=== PATIENT | female | born 1990 | race Caucasian/White ===

== ENCOUNTER → 2018-04-22 | Outpatient (CLI) | payer OTHER ==
--- NOTE | 2018-04-22 16:06 | XR ---
Cervical spine HISTORY: Pain 5 views of cervical spine There is no significant foraminal encroachment. Cervical vertebral bodies show preserved height and b one mineralization. There is reversal the normal cervical lordosis possibly due to muscle spasm. Mini mal anterolisthesis grade 1 C2-3. Disc spaces relatively maintained. Prevertebral soft tissues are no rmal. IMPRESSION: Loss of lordosis, consider muscle spasm, cervical MRI may be of benefit.
== END | disposition home or self-care (01) ==
LOC: RADXRMAIN 15:15
PROVIDERS: ATTEND Family Medicine
DX: M54.2 Cervicalgia (principal)
CPT/HCPCS: 72050

== ENCOUNTER 2025-02-28 09:50 | Inpatient (IN) | payer OTHER ==
--- NOTE | 2025-02-28 10:37 | ED ---
General Adult HPI - General Chief complaint: Arrhythmia/Palpitations Stated complaint: chest tightness,head ache Time Seen by Provider: 02/28/25 10:18 Source: patient Mode of arrival: ambulatory Limitations: no limitations - History of Present Illness Initial comments: Dictation was produced using [employer] dictation software. please excuse any grammatical, word or spelling errors. Chief Complaint: 35-year-old female chest heaviness rash History of Present Illness: Patient 35-year-old female seen at the urgent care for hives. She has history of liver disease. States she went to the urgent care yesterday and was told to come to the ER because she had associated chest symptoms. She was given allergy cocktail with improvement of her symptoms. She woke up this morning still had symptoms decided to come to the ER today. Patient denies any cardiac history. States that she feels like her heart is racing as well. The ROS documented in this emergency department record has been reviewed and confirmed by me. Those systems with pertinent positive or negative responses have been documented in the HPI. All other systems are other negative and/or noncontributory. - Related Data Allergies Allergy/AdvReac Type Severity Reaction Status Date / Time Penicillins Allergy Anaphylaxis Verified 02/28/25 10:13 Review of Systems ROS Statement: Those systems with pertinent positive or pertinent negative responses have been documented in the HPI. ROS Other: All systems not noted in ROS Statement are negative. Past Medical History History of Any Multi-Drug Resistant Organisms: None Reported Past Surgical History: Section, Orthopedic Surgery, Tubal Ligation Past Psychological History: Depression Smoking Status: Current every day smoker Past Alcohol Use History: Occasional Past Drug Use History: Marijuana General Exam - General Exam Comments Initial Comments: PHYSICAL EXAM: General Impression: Alert and oriented x3, not in acute distress HEENT: Normocephalic atraumatic, extra-ocular movements intact, pupils equal and reactive to light bilaterally, mucous membranes moist. Cardiovascular: Heart regular rate and rhythm Chest: Able to complete full sentences, no retractions, no tachypnea Abdomen: abdomen soft, non-tender, non-distended, no organomegaly Musculoskeletal: Pulses present and equal in all extremities, no peripheral edema Motor: no focal deficits noted Neurological: CN II-XII grossly intact, no focal motor or sensory deficits noted Skin: Intact with no visualized rashes Psych: Normal affect and mood Limitations: no limitations Course Vital Signs 02/28/25 02/28/25 10:07 12:44 Temperature 97.5 F L Pulse Rate 99 86 Respiratory 20 17 Rate Blood Pressure 129/87 106/73 O2 Sat by Pulse 99 99 Oximetry EKG Findings - EKG Comments: EKG Findings:: My EKG interpretation: Ventricular rate 91, sinus rhythm, WA 146, cures 94, QTc 439. No WA prolongation, no QTC prolongation, no ST or T-wave c hanges noted. Overall, this EKG is unremarkable Medical Decision Making - Medical Decision Making Was pt. sent in by a medical professional or institution (, PA, POLYMER SCIENTIST, urgent care, hospital, or care home...) When possible be specific @ -No Did you speak to anyone other than the patient for history (EMS, parent, family, police, friend...)? What history was obtained from this source @ -No Did you review nursing and triage notes (agree or disagree)? Why? @ -I reviewed and agree with nursing and triage notes Were old charts reviewed (outside hosp., previous admission, EMS record, old EKG, old radiological studies, urgent care reports/EKG's, care home records)? Report findings @ -No old charts were reviewed Differential Diagnosis (chest pain, altered mental status, abdominal pain women, abdominal pain men, vaginal bleeding, musculoskeletal, weakness, fever, dyspnea, syncope, headache, dizziness, GI bleed, back pain, seizure, CVA, palpatations, mental health)? @ -Differential Chest Pain: Stable Angina, Unstable Angina, STEMI, NSTEMI Aortic Dissection, Pneumothorax, Musculoskeletal, Esophageal Spasm GERD, Cholecystitis, Pancreatitis, Zoster, this is not meant to be an all-inclusive list. EKG interpreted by me (3pts min.). @ -See above X-rays interpreted by me (1pt min.). @ -Chest x-ray shows no acute processes CT interpreted by me (1pt min.). @ -None done U/S interpreted by me (1pt. min.). @ -None done What testing was considered but not performed or refused? (CT, X-rays, U/S, labs)? Why? @ -None What meds were considered but not given or refused? Why? @ -None Was smoking cessation discussed for >3mins.? @ -No Were there social determinants of health that impacted care today? How? (Homelessness, low income, unemployed, alcoholism, drug addiction, transportation, low edu. Level, literacy, decrease access to med. care, [place] [facility], rehab)? @ -No Was there de-escalation of care discussed even if they declined (Discuss DNR or withdrawal of care, Hospice)? DNR status @ -No What co-morbidities impacted this encounter? (DM, HTN, Smoking, COPD, CAD, Cancer, CVA, ARF, Chemo, Hep., AIDS, mental health diagnosis, sleep apnea, morbid obesity)? @ -None Was patient admitted / discharged? Hospital course, mention meds given and route, prescriptions, significant lab abnormalities, going to OR and other perti nent info. @ -35-year-old female presents with chest pain, palpitations headache and rash. Vital signs upon arrival are within acceptable limits. EKG is unremarkable. Laboratory evaluation obtained labs are within acceptable limits troponins negative. Patient has slight hypomagnesemia given magnesium replacement. Patient given aspirin. She does have symptoms concerning for ACS with substern al chest pressure and shortness of breath. Will be admitted to observation consultation to cardiology. Case discussed with hospitalist for admission Did you discuss the management of the patient with other professionals (professionals i.e. , PA, POLYMER SCIENTIST, lab, RT, psych nurse, social media sr strategy manager, lawyer real estate, teacher, marketing and communications officer, foster care case manager)? Give summary @ -No Was critical care preformed (if so, how long)? @ -No Undiagnosed new problem with uncertain prognosis? @ -No Drug Therapy requiring intensive monitoring for toxicity (Heparin, Nitro, Insulin, Cardizem)? @ -No Were any procedures done? @ -No Diagnosis/symptom? Acute, or Chronic, or Acute on Chronic? Uncomplicated (without systemic symptoms) or Complicated (systemic symptoms)? @ -Chest pain Side effects of treatment? @ -No Exacerbation, Progression, or Severe Exacerbation? @ -No Poses a threat to life or bodily function? How? (Chest pain, [place], [place], pneumonia, PE, COPD, DKA, ARF, appy, cholecystitis, CVA, Diverticulitis, Homicidal, Suicidal, threat to staff... and all critical care pts) @ -yes - Lab Data Result diagrams: 02/28/25 10:44 05/18/25 10:44 Lab Results 02/28/25 02/28/25 02/28/25 Range/Units 10:44 10:44 10:44 WBC 12.87 H (4.50-10.00) 10*3/uL RBC 4.42 (4.10-5.20) 10*6/uL Hgb 12.8 (12.0-15.0) g/dL Hct 38.0 (37.2-46.3) % MCV 86.0 (80.0-97.0) fL MCH 29.0 (27.0-32.0) pg MCHC 33.7 (32.0-37.0) g/dL Plt Count 209 (140-440) 10*3/uL MPV 10.4 (9.5-12.2) fL Immature Gran % (Auto) 0.2 % Neutrophils % 74.0 % Lymphocytes % 19.9 % Monocytes % 5.7 % Eosinophils % 0.0 % Basophils % 0.2 % Immature Gran # 0.03 (0.00-0.04) 10*3/uL Neutrophils # 9.51 H (1.80-7.70) 10*3/uL Lymphocytes # 2.56 (0.90-5.00) 10*3/uL Monocytes # 0.74 (0.20-1.00) 10*3/uL Eosinophils # 0.00 L (0.04-0.35) 10*3/uL Basophils # 0.03 (0.00-0.10) 10*3/uL PT 11.8 (10.0-12.5) sec INR 1.1 (<1.2) APTT 21.9 L (22.0-30.0) sec Sodium 139 (137-145) mmol/L Potassium 3.4 L (3.5-5.1) mmol/L Chloride 103 (98-107) mmol/L Carbon Dioxide 18 L (22-30) mmol/L Anion Gap 18 mmol/L BUN 8 (7-17) mg/dL Creatinine 0.54 (0.52-1.04) mg/dL Est GFR (CKD-EPI)AfAm >90 (>60 ml/min/1.73 sqM) Est GFR (CKD-EPI)NonAf >90 (>60 ml/min/1.73 sqM) Glucose 91 (74-99) mg/dL Calcium 10.9 H (8.4-10.2) mg/dL Magnesium 1.5 L (1.6-2.3) mg/dL Total Bilirubin 0.9 (0.2-1.3) mg/dL AST 72 H (14-36) U/L ALT 47 H (4-34) U/L Alkaline Phosphatase 180 H (38-126) U/L Troponin I (0.000-0.034) ng/mL Total Protein 9.0 H (6.3-8.2) g/dL Albumin 5.1 H (3.5-5.0) g/dL 02/28/25 Range/Units 10:44 WBC (4.50-10.00) 10*3/uL RBC (4.10-5.20) 10*6/uL Hgb (12.0-15.0) g/dL Hct (37.2-46.3) % MCV (80.0-97.0) fL MCH (27.0-32.0) pg MCHC (32.0-37.0) g/dL Plt Count (140-440) 10*3/uL MPV (9.5-12.2) fL Immature Gran % (Auto) % Neutrophils % % Lymphocytes % % Monocytes % % Eosinophils % % Basophils % % Immature Gran # (0.00-0.04) 10*3/uL Neutrophils # (1.80-7.70) 10*3/uL Lymphocytes # (0.90-5.00) 10*3/uL Monocytes # (0.20-1.00) 10*3/uL Eosinophils # (0.04-0.35) 10*3/uL Basophils # (0.00-0.10) 10*3/uL PT (10.0-12.5) sec INR (<1.2) APTT (22.0-30.0) sec Sodium (137-145) mmol/L Potassium (3.5-5.1) mmol/L Chloride (98-107) mmol/L Carbon Dioxide (22-30) mmol/L Anion Gap mmol/L BUN (7-17) mg/dL Creatinine (0.52-1.04) mg/dL Est GFR (CKD-EPI)AfAm (>60 ml/min/1.73 sqM) Est GFR (CKD-EPI)NonAf (>60 ml/min/1.73 sqM) Glucose (74-99) mg/dL Calcium (8.4-10.2) mg/dL Magnesium (1.6-2.3) mg/dL Total Bilirubin (0.2-1.3) mg/dL AST (14-36) U/L ALT (4-34) U/L Alkaline Phosphatase (38-126) U/L Troponin I <0.012 (0.000-0.034) ng/mL Total Protein (6.3-8.2) g/dL Albumin (3.5-5.0) g/dL Disposition Clinical Impression: Chest pain Disposition: ADMITTED IP TO THIS HOSP Condition: Fair Is patient prescribed a controlled substance at d/c from ED?: No Referrals: None,Stated [Primary Care Provider] - 1-2 days Decision Time: 13:22
[2025-02-28 11:05] LABS: Basophils # (A) 0.03 10*3/uL (0.00-0.10); Basophils % (A) 0.2 %; HGB 12.8 g/dL (12.0-15.0); Lymphocytes # (A) 2.56 10*3/uL (0.90-5.00); Lymphocytes % (A) 19.9 %; MCHC 33.7 g/dL (32.0-37.0); Mean Platelet Volume 10.4 fL (9.5-12.2); Monocytes # (A) 0.74 10*3/uL (0.20-1.00); Monocytes % (A) 5.7 %; Neutrophils # (A) 9.51 10*3/uL (1.80-7.70); Platelet Count 209 10*3/uL (140-440); RBC 4.42 10*6/uL (4.10-5.20); RDW 14.2 % (11.5-14.5); WBC 12.87 10*3/uL (4.50-10.00)
--- NOTE | 2025-02-28 11:12 | XR ---
Chest, 2 view. CLINICAL INDICATION: Female, 35 years old with history of Chest Pain COMPARISON: None TECHNIQUE: PA and lateral views the chest are obtained. FINDINGS: The lungs are clear and there is no consolidative or interstitial opacity. There is no pleural effusion or pneumothorax. The heart, pulmonary vasculature, mediastinum and vanesa appear normal. The osseous structures are intact. IMPRESSION: No significant abnormality seen. No acute cardiopulmonary disease. [facility], , 02/28/2025 11:09 AM
[2025-02-28 11:14] LABS: AST 72 U/L (14-36); African American GFR (CKD) >90 (>60 ml/min/1.73 sqM); Albumin 5.1 g/dL (3.5-5.0); Alkaline Phosphatase 180 U/L (38-126); Anion Gap 18 mmol/L; Blood Urea Nitrogen 8 mg/dL (7-17); Calcium 10.9 mg/dL (8.4-10.2); Carbon Dioxide 18 mmol/L (22-30); Chloride 103 mmol/L (98-107); Glucose 91 mg/dL (74-99); Magnesium 1.5 mg/dL (1.6-2.3); Non-African American GFR(CKD) >90 (>60 ml/min/1.73 sqM); Potassium 3.4 mmol/L (3.5-5.1); Sodium 139 mmol/L (137-145); Total Bilirubin 0.9 mg/dL (0.2-1.3)
[2025-02-28 11:20] LABS: ALT 47 U/L (4-34)
[2025-02-28 11:22] LABS: INR 1.1 (<1.2); Partial Thromboplastin Time 21.9 sec (22.0-30.0); Prothrombin Time 11.8 sec (10.0-12.5)
[2025-02-28] MEDS ORDERED: MORPHINE SULFATE/PF 10MG/10ML VL IVP PRN (11:58)
[2025-02-28] MEDS: SODIUM CHLORIDE 0.9% 1,000 ML IV STA (12:41)
[2025-02-28] MEDS: MORPHINE SULFATE 4 MG/ML SYRINGE IVP ONE (12:41)
[2025-02-28] MEDS: ASPIRIN 81 MG PO STA (14:39)
[2025-02-28] MEDS: KETOROLAC 15 MG/ML 1 ML VIAL IVP STA (14:39)
[2025-02-28] MEDS: MAGNESIUM OXIDE 400 MG TAB PO STA (14:40)
[2025-02-28] MEDS: NITROGLYCERIN SL TABS 0.4 MG TAB SUBLINGUAL PRN (17:17)
[2025-02-28] MEDS: IBUPROFEN 600 MG TAB PO PRN (23:30)
[2025-03-01] MEDS: MORPHINE SULFATE 2 MG/ML SYRINGE IVP STA (01:29)
[2025-03-01] MEDS: NITROGLYCERIN-D5W PMX 50 MG in DEXTROSE/WATER 1 250ML.BAG IV SCH (02:26)
[2025-03-01 06:06] VITALS: TEMP 97.7
[2025-03-01 07:22] VITALS: RESP 16
[2025-03-01 08:17] LABS: Chol/HDL Ratio 3.68 Ratio; LDL Cholesterol,Calculated 122.2 mg/dL (0.0-131.0)
[2025-03-01] MEDS ORDERED: ALPRAZolam 0.25 MG TAB PO PRN (09:19)
[2025-03-01] MEDS ORDERED: NITROGLYCERIN SL TABS 0.4 MG TAB SUBLINGUAL PRN (09:19)
--- NOTE | 2025-03-01 09:29 | P.CRDCN ---
History of Present Illness Consult date: 03/01/25 History of present illness: HPI: The patient is a 35-year-old female with a history of tobacco and marijuana smoking and a family history of heart disease, with her father having had an OH at age 36. She presented to the hospital due to worsening substantial chest pressure that began on . She reported that on 02/27/2025, she had hives and received steroids at an urgent care facility. The following day, she experienced significant chest heaviness. Sublingual nitroglycerin initially resolved her pain, but it returned, unrelieved by Toradol and aspirin. A ni troglycerin drip at 5 micrograms helped reduce her pain. Her pain reoccurred as the nitroglycerin was stopped. Her EKG did not show significant ST depression or changes concerning ischemia, but there was slight concave elevation diffusely, possibly indicating pericarditis. Her troponin levels were not elevated. Due to chest pain symptoms, cardiology was consulted. Pertinent Vitals: BP 121/85, HR 58 BPM Pertinent cardiac Labs: Trop not elevated, mild transaminitis with elevated AST, ALP, ALT, Pertinent cardiac testing: - EK02/2025: Sinus rhythm, mild concave ST elevation diffusely, possible pericarditis, no clear signs of acute ischemia. - Chest X-ray: 02/2025: No significant consolidation, congestion, mildly hyperinflated lungs. REVIEW OF SYSTEMS: 14 point review of system is negative except what is mentioned above in HPI. PHYSICAL EXAMINATION: Neck: Brisk carotid upstroke, no jugular venous distention. Lungs: Clear to auscultation. Heart: Regular rate and rhythm, S1-S2, no murmur or rub. Abdomen: Soft nontender, positive bowel sounds. Extremities: No edema, intact distal pulses. Neuro: Alert, oriented, no focal deficits. Detailed neuro exam was not performed. ASSESSMENT: # Substantial chest pressure, likely unstable angina, possibly stress-induced # Family history of premature CAD, father with OH at age 36 # Tobacco half pack # Marijuana use, 2-3 times daily and form of smoking PLAN: # Plan for cardiac catheterization due to ongoing substantial chest pressure, improving with nitroglycerin drip but recurring when stopped # Obtain echocardiogram # Obtain NTproBNP, HbA1c, TSH levels, obtain ESR and CRP levels # Start aspirin, Lipitor # Follow cardiology recommendations Past Medical History History of Any Multi-Drug Resistant Organisms: None Reported Past Surgical History: Section, Orthopedic Surgery, Tubal Ligation Past Psychological History: Depression Smoking Status: Current every day smoker Past Alcohol Use History: Occasional Past Drug Use History: Marijuana Medications and Allergies Home Medications Medication Instructions Recorded Confirmed Type No Known Home Medications 02/28/25 02/28/25 History Allergies Allergy/AdvReac Type Severity Reaction Status Date / Time Penicillins Allergy Anaphylaxis Verified 02/28/25 14:15 Physical Exam Vitals: Vital Signs Temp Pulse Resp BP Pulse Ox 03/01/25 07:21 85 16 108/85 99 03/01/25 06:00 97.7 F 60 18 104/71 96 03/01/25 04:02 65 113/85 100 03/01/25 03:00 58 L 18 121/85 100 03/01/25 01:00 66 18 113/89 99 03/01/25 00:00 87 115/82 99 02/28/25 23:00 78 18 105/92 98 02/28/25 22:00 116/84 02/28/25 21:39 76 111/84 100 02/28/25 20:26 79 116/77 100 02/28/25 20:14 80 118/81 99 02/28/25 19:42 98.0 F 85 18 116/77 99 02/28/25 17:03 83 18 113/78 98 02/28/25 15:00 81 17 122/84 98 02/28/25 12:44 86 17 106/73 99 02/28/25 10:07 97.5 F L 99 20 129/87 99 Results 02/28/25 10:44 02/28/25 10:44 Cardiac Enzymes 02/28/25 02/28/25 02/28/25 Range/Units 10:44 10:44 14:47 AST 72 H (14-36) U/L Troponin I <0.012 <0.012 (0.000-0.034) ng/mL 02/28/25 02/28/25 Range/Units 18:18 20:56 AST (14-36) U/L Troponin I <0.012 <0.012 (0.000-0.034) ng/mL Coagulation 02/28/25 Range/Units 10:44 PT 11.8 (10.0-12.5) sec APTT 21.9 L (22.0-30.0) sec Lipids 02/28/25 Range/Units 10:44 Triglycerides 88.00 (0.00-149.00) mg/dL Cholesterol 192.00 (0.00-200.00) mg/dL HDL Cholesterol 52.20 (40.00-60.00) mg/dL Cholesterol/HDL Ratio 3.68 Ratio CBC 02/28/25 Range/Units 10:44 WBC 12.87 H (4.50-10.00) 10*3/uL RBC 4.42 (4.10-5.20) 10*6/uL Hgb 12.8 (12.0-15.0) g/dL Hct 38.0 (37.2-46.3) % Plt Count 209 (140-440) 10*3/uL Comprehensive Metabolic Panel 02/28/25 Range/Units 10:44 Sodium 139 (137-145) mmol/L Potassium 3.4 L (3.5-5.1) mmol/L Chloride 103 (98-107) mmol/L Carbon Dioxide 18 L (22-30) mmol/L BUN 8 (7-17) mg/dL Creatinine 0.54 (0.52-1.04) mg/dL Glucose 91 (74-99) mg/dL Calcium 10.9 H (8.4-10.2) mg/dL AST 72 H (14-36) U/L ALT 47 H (4-34) U/L Alkaline Phosphatase 180 H (38-126) U/L Total Protein 9.0 H (6.3-8.2) g/dL Albumin 5.1 H (3.5-5.0) g/dL Current Medications Generic Name Dose Route Start Last Admin Trade Name Freq PRN Reason Stop Dose Admin Alprazolam 0.25 mg 03/01/25 09:19 Alprazolam 0.25 Mg Tab PO Q6HR PRN Mild Anxiety Aspirin 325 mg 03/01/25 09:00 Aspirin 325 Mg Tab PO DAILY JADEN Nitroglycerin/Dextrose 50 mg/ 250 mls @ 1.5 mls/hr 03/01/25 01:15 03/01/25 02:26 IV Solution IV 5 mcg/min .Q24H JADEN 1.5 mls/hr Administration Protocol 5 MCG/MIN Heparin Sodium (Porcine) 10, 1,001 mls @ 999 mls/hr 03/02/25 07:00 000 unit/ Sodium Chloride IRRIGATION 03/02/25 23:00 ONCE PRN INTRA-OP Heparin Sodium (Porcine) 2,500 250.5 mls @ 250 mls/hr 03/02/25 07:00 unit/ Sodium Chloride IRRIGATION 03/02/25 23:00 ONCE PRN INTRA-OP Sodium Chloride 1,000 ml/ IV 1,000 mls @ 49.895 mls/hr 03/01/25 09:30 Solution IV .Q20H3M JADEN 1 ML/KG/HR Ibuprofen 600 mg 02/28/25 23:19 03/01/25 07:25 Ibuprofen 600 Mg Tab PO 600 mg TID PRN Administration Headache Nitroglycerin 0.4 mg 02/28/25 13:19 02/28/25 20:08 Nitroglycerin Sl Tabs 0.4 Mg Tab SUBLINGUAL 0.4 mg Q5M PRN Administration Chest Pain Nitroglycerin 0.4 mg 03/01/25 09:19 Nitroglycerin Sl Tabs 0.4 Mg Tab SUBLINGUAL Q5M PRN Chest Pain 02/28/25 10:44 02/28/25 10:44
[2025-03-01] MEDS: ASPIRIN 325 MG TAB PO STA (09:39)
--- NOTE | 2025-03-01 09:48 | P.HPIM ---
History of Present Illness H&P Date: 03/01/25 History of present illness; patient 35-year-old lady with past medical history significant for liver disease who presented to The ER because of chest pain. Patient stated she woke up this morning with chest heaviness and headache. Chest heaviness was central in location, nonradiating, no aggravating or relieving factor associated with this chest pain. There was no complaint of orthopnea or PND. Patient complains of shortness of breath. There was no episode of diaphoresis during these episodes, states hard to catch breath during this episode of chest pain. Patient also complaining of palpitations during these episodes. Patient recently was seen in the urgent care for hives at which time she was given Benadryl and steroids. Because of this persistent chest heaviness, patient came to the ER Initial lab work done in the ER showed WBC 12.87, hemoglobin 12.8, platelet count 209, sodium 139, potassium 3.4, BUN 8, creatinine 0.54, magnesium 1.5, AST 72, ALT 47, troponin 0.012 EKG done in the ER showed heart rate of 91, no ST segment elevation or depression seen, no T-wave inversions seen. Chest x-ray done in the ER showed no acute cardiopulmonary process Patient admitted to internal medicine service REVIEW OF SYSTEMS: CONSTITUTIONAL: No fever, no malaise, no fatigue. HEENT: No recent visual problems or hearing problems. Denied any sore throat. CARDIOVASCULAR: As mentioned above. PULMONARY: As mentioned above GASTROINTESTINAL: No diarrhea, no nausea, no vomiting, no abdominal pain. NEUROLOGICAL: No weakness, no numbness. HEMATOLOGICAL: Denies any bleeding or petechiae. GENITOURINARY: Denies any burning micturition, frequency, or urgency. MUSCULOSKELETAL/RHEUMATOLOGICAL: Denies any joint pain, swelling, or any muscle pain. ENDOCRINE: Denies any polyuria or polydipsia. The rest of the 14-point review of systems is negative. PHYSICAL EXAMINATION: GENERAL: The patient is alert and oriented x3, not in any acute distress. Well developed, well nourished. HEENT: Pupils are round and equally reacting to light. EOMI. No scleral icterus. No conjunctival pallor. Normocephalic, atraumatic. No pharyngeal erythema. No thyromegaly. CARDIOVASCULAR: S1 and S2 present. No murmurs, rubs, or gallops. PULMONARY: Chest is clear to auscultation, no wheezing or crackles. ABDOMEN: Soft, nontender, nondistended, normoactive bowel sounds. No palpable organomegaly. MUSCULOSKELETAL: No joint swelling or deformity. EXTREMITIES: No cyanosis, clubbing, or pedal edema. NEUROLOGICAL: Gross neurological examination did not reveal any focal deficits. SKIN: No rashes. Assessment and plan Acute coronary syndrome Hypomagnesemia Acute transaminitis Monitor vital signs Monitor CBC Monitor CMP Continue telemetry monitoring trend troponins Started aspirin, Lipitor Ordered lipid panel Order HbA1c level Ordered 2D echo Start heparin pharmacy dose Consult cardiology Labs and medication were reviewed.. Continue same treatment. Continue with symptomatic treatment. Resume home medication. Monitor labs and vitals. DVT and GI prophylaxis. Further recommendations as per clinical course of the patient Dictation was produced using [employer] dictation software. please excuse any grammatical, word or spelling errors. Past Medical History History of Any Multi-Drug Resistant Organisms: None Reported Past Surgical History: Section, Orthopedic Surgery, Tubal Ligation Past Psychological History: Depression Smoking Status: Current every day smoker Past Alcohol Use History: Occasional Past Drug Use History: Marijuana Medications and Allergies Home Medications Medication Instructions Recorded Confirmed Type No Known Home Medications 02/28/25 02/28/25 History Allergies Allergy/AdvReac Type Severity Reaction Status Date / Time Penicillins Allergy Anaphylaxis Verified 02/28/25 14:15 Physical Exam Vitals: Vital Signs Temp Pulse Resp BP Pulse Ox 03/01/25 07:21 85 16 108/85 99 03/01/25 06:00 97.7 F 60 18 104/71 96 03/01/25 04:02 65 113/85 100 03/01/25 03:00 58 L 18 121/85 100 03/01/25 01:00 66 18 113/89 99 03/01/25 00:00 87 115/82 99 02/28/25 23:00 78 18 105/92 98 02/28/25 22:00 116/84 02/28/25 21:39 76 111/84 100 02/28/25 20:26 79 116/77 100 02/28/25 20:14 80 118/81 99 02/28/25 19:42 98.0 F 85 18 116/77 99 02/28/25 17:03 83 18 113/78 98 02/28/25 15:00 81 17 122/84 98 02/28/25 12:44 86 17 106/73 99 02/28/25 10:07 97.5 F L 99 20 129/87 99 Results CBC & Chem 7: 02/28/25 10:44 02/28/25 10:44 Labs: Abnormal Lab Results - Last 24 Hours (Table) 02/28/25 02/28/25 02/28/25 Range/Units 10:44 10:44 10:44 WBC 12.87 H (4.50-10.00) 10*3/uL Neutrophils # 9.51 H (1.80-7.70) 10*3/uL Eosinophils # 0.00 L (0.04-0.35) 10*3/uL APTT 21.9 L (22.0-30.0) sec Potassium 3.4 L (3.5-5.1) mmol/L Carbon Dioxide 18 L (22-30) mmol/L Calcium 10.9 H (8.4-10.2) mg/dL Magnesium 1.5 L (1.6-2.3) mg/dL AST 72 H (14-36) U/L ALT 47 H (4-34) U/L Alkaline Phosphatase 180 H (38-126) U/L Total Protein 9.0 H (6.3-8.2) g/dL Albumin 5.1 H (3.5-5.0) g/dL
[2025-03-01] MEDS: ASPIRIN 325 MG TAB PO SCH (10:07)
[2025-03-01] MEDS: ATORVASTATIN 80 MG TAB PO STA (10:07)
[2025-03-01] MEDS: SODIUM CHLORIDE 0.9% 1,000 ML in EMPTY BAG 1 BAG IV SCH (10:07)
[2025-03-01 10:15] LABS: Magnesium 1.8 mg/dL (1.6-2.3)
[2025-03-01 10:25] LABS: NT-Pro-B-Type Natriuretic Pept 239 pg/mL
[2025-03-01] MEDS: BUTALB/APAP/CAFF 50-325-40MG TAB PO PRN (10:44)
[2025-03-01 11:22] LABS: C Reactive Protein 0.6 mg/dL (<1.0)
[2025-03-01] MEDS: LIDOCAINE 1% INJ 10MG/ML (30 ML VIAL-PF) SQ ONE (11:44)
[2025-03-01] MEDS: MIDAZOLAM 2 MG/2 ML VIAL IVP ONE (11:44)
[2025-03-01] MEDS: IV FLUID CONTINUATION 1,000 ML IV ONE (11:45)
[2025-03-01] MEDS: VERAPAMIL SYRINGE (5 MG/10 ML) INTRAARTER ONE (11:45)
[2025-03-01] MEDS: fentaNYL (PF) 50 MCG/1 ML VIAL IVP ONE (11:45)
[2025-03-01] MEDS: HEPARIN SODIUM 1,000 UN/ML (10ML VL) IVP ONE (11:50)
[2025-03-01] MEDS: IOPAMIDOL-300 100ML BTL IVP ONE (11:57)
[2025-03-01] MEDS ORDERED: RX INFO: IV CONTRAST WAS GIVEN 1 EACH MISC MISCELLANE PRN (12:08)
[2025-03-01] MEDS ORDERED: ISOSORBIDE MONONITRATE ER 15 MG TAB PO SCH (12:15)
[2025-03-01] MEDS ORDERED: LOSARTAN 25 MG TAB PO SCH (12:15)
[2025-03-01] MEDS ORDERED: SODIUM CHLORIDE 0.9% 1,000 ML IV SCH (12:15)
[2025-03-01 15:23] VITALS: BP 109/67; PULSE 67
--- NOTE | 2025-03-01 16:56 | CA ---
Transthoracic Echo Report Name: Maya Colin Age: 35 Gender: F : 1990 Exam Date: 03/01/2025 10:05 Exam Location: [facility] Ht (in): 60 Wt (lb): 110 Ordering Physician: Jesus Maki MD ([email or web address]) Attending/Referring Phys: Anesthesiology Faculty Johana Allen, MADHU Procedure CPT: Indications: angina pectoris Cardiac Hx: Technical Quality: Good Contrast 1: Total Dose (mL): Contrast 2: Total Dose (mL): MEASUREMENTS (Male / Female) Normal Values 2D ECHO LV Diastolic Diameter PLAX 4.4 cm 4.2 - 5.9 / 3.9 - 5.3 cm LV Systolic Diameter PLAX 3.0 cm IVS Diastolic Thickness 0.8 cm 0.6 - 1.0 / 0.6 - 0.9 cm LVPW Diastolic Thickness 0.8 cm 0.6 - 1.0 / 0.6 - 0.9 cm LV Relative Wall Thickness 0.4 RV Internal Dim ED PLAX 2.6 cm LVOT Diameter 1.5 cm LA Systolic Diameter LX 3.2 cm 3.0 - 4.0 / 2.7 - 3.8 cm LV Diastolic Volume MOD 4C 79.4 cm??? LV Systolic Volume MOD 4C 40.9 cm??? LV Ejection Fraction MOD 4C 48.5 % LV Diastolic Length 4C 8.7 cm LV Systolic Length 4C 7.4 cm LA Volume 44.2 cm??? 18 - 58 / 22 - 52 cm??? LA Volume Index 30.3 cm???/m??? 16 - 28 cm???/m??? DOPPLER MV Area PHT 2.9 cm??? Mitral E Point Velocity 70.7 cm/s Mitral A Point Velocity 46.0 cm/s Mitral E to A Ratio 1.5 MV Deceleration Time 261.8 ms TR Peak Velocity 182.8 cm/s TR Peak Gradient 13.4 mmHg FINDINGS Left Ventricle Left ventricular ejection fraction is estimated at 60 %. Normal left ventricular systolic function with no obvious regional wall motion abnormalities. Left ventricular cavity size normal. Left ventricular wall thickness normal. Right Ventricle Normal right ventricular size and function. Right ventricular systolic pressure within normal limits. Right Atrium Normal right atrial size. Left Atrium Mildly increased left atrial volume. Mitral Valve Mitral valve thickened. No mitral stenosis. Trace mitral regurgitation. Aortic Valve Trileaflet aortic valve. No aortic valve stenosis or regurgitation. Tricuspid Valve Structurally normal tricuspid valve. No tricuspid stenosis. Mild tricuspid regurgitation. Pulmonic Valve Structurally normal pulmonic valve. No pulmonic stenosis. No pulmonic regurgitation. Pericardium No pericardial effusion. Aorta Normal size aortic root and proximal ascending aorta. CONCLUSIONS Diagnosis chest discomfort/angina pectoralis Normal LV size and function Prominent posterior pericardial stripe No effusion Previewed by: Dr. Michael Loaiza MD (Electronically Signed) Final Date: 01 Mar 2025 16:55
[2025-03-01] MEDS ORDERED: ATORVASTATIN 20 MG TAB PO SCH (21:00)
[2025-03-02] MEDS ORDERED: HEPARIN SODIUM,PORCINE (1 ML) 2,500 UNIT in SODIUM CHLORIDE 0.9% 250 ML IRRIGATION PRN (07:00)
[2025-03-02] MEDS ORDERED: HEPARIN SODIUM,PORCINE 10,000 UNIT in SODIUM CHLORIDE 0.9% 1,000 ML IRRIGATION PRN (07:00)
[2025-03-02] MEDS ORDERED: ATORVASTATIN 40 MG TAB PO SCH (21:00)
--- NOTE | 2025-03-05 13:33 | P.DS ---
Providers Date of admission: 02/28/25 13:20 Expected date of discharge: 03/01/25 Attending physician: Geoffrey Mandel Consults: 02/28/25 13:19 Consult Physician Urgent Consulting Provider: Peewee Currie Consult Reason/Comments: chest pain Do you want consulting provider notified?: Yes Primary care physician: Stated None Hospital Course: Discharge diagnoses; Acute coronary syndrome Hypomagnesemia Acute transaminitis Hospital course; patient 35-year-old lady with past medical history significant for liver disease who presented to The ER because of chest pain. Patient stated she woke up this morning with chest heaviness and headache. Chest heaviness was central in location, nonradiating, no aggravating or relieving factor associated with this chest pain. There was no complaint of orthopnea or PND. Patient complains of shortness of breath. There was no episode of diaphoresis during these episodes, states hard to catch breath during this episode of chest pain. Pat ient also complaining of palpitations during these episodes. Patient recently was seen in the urgent care for hives at which time she was given Benadryl and steroids. Because of this persistent chest heaviness, patient came to the ER Initial lab work done in the ER showed WBC 12.87, hemoglobin 12.8, platelet count 209, sodium 139, potassium 3.4, BUN 8, creatinine 0.54, magnesium 1.5, AST 72, ALT 47, troponin 0.012 EKG done in the ER showed heart rate of 91, no ST segment elevation or depression seen, no T-wave inversions seen. Chest x-ray done in the ER showed no acute cardiopulmonary process Patient admitted to internal medicine service. Cardiology evaluated, recommended coronary angiography. Cardiac cath done showed normal coronary angiogram, cardiology cleared the patient for discharge PHYSICAL EXAMINATION: GENERAL: The patient is alert and oriented x3, not in any acute distress. Well developed, well nourished. HEENT: Pupils are round and equally reacting to light. EOMI. No scleral icterus. No conjunctival pallor. Normocephalic, atraumatic. No pharyngeal erythema. No thyromegaly. CARDIOVASCULAR: S1 and S2 present. No murmurs, rubs, or gallops. PULMONARY: Chest is clear to auscultation, no wheezing or crackles. ABDOMEN: Soft, nontender, nondistended, normoactive bowel sounds. No palpable organomegaly. MUSCULOSKELETAL: No joint swelling or deformity. EXTREMITIES: No cyanosis, clubbing, or pedal edema. NEUROLOGICAL: Gross neurological examination did not reveal any focal deficits. SKIN: No rashes. Dictation was produced using [employer] dictation software. please excuse any grammatical, word or spelling errors. Patient Condition at Discharge: Fair Plan - Discharge Summary New Discharge Prescriptions: New Losartan [Cozaar] 12.5 mg PO DAILY #30 tab Isosorbide Mononitrate ER [Imdur] 15 mg PO DAILY #30 tab Atorvastatin [Lipitor] 20 mg PO HS #30 tab Discharge Medication List Atorvastatin [Lipitor] 20 mg PO HS #30 tab 03/01/25 [Rx] Isosorbide Mononitrate ER [Imdur] 15 mg PO DAILY #30 tab 03/01/25 [Rx] Losartan [Cozaar] 12.5 mg PO DAILY #30 tab 03/01/25 [Rx] Follow up Appointment(s)/Referral(s): Jesus Maki MD [Medical Doctor] - 03/10/25 9:00 am None,Stated [Primary Care Provider] - 1-2 days Patient Instructions/Handouts: Moderate Sedation (DC), After Radial Heart Catheterization (GEN), Left Heart Catheterization (DC) Activity/Diet/Wound Care/Special Instructions: No flexing/bending/pushing/pulling/lifting greater than 5 pounds x5 days No driving x2 days No submersion of right wrist in pools/hot tubs/bath tubs/dishwater x3 days Encourage fluids x2 days Home medications as ordered- new scripts to be picked up Fall risk/safety precautions Follow up- with Dr. Maki in one week- Discussed with patient regarding establishing with primary care physician Discharge Disposition: HOME SELF-CARE
--- NOTE | 2025-03-11 14:44 | P.CARDCATH ---
Date of Procedure: 03/01/25 Description of Procedure: DIAGNOSTIC CORONARY ANGIOGRAPHY and LEFT HEART CATH REPORT PROCEDURES PERFORMED: Left heart catheterization Selective coronary angiography Moderate conscious sedation 15 mins [Ultrasound assisted] Right radial access INDICATION: [Unstable angina] BRIEF HPI: 35-year-old female presented to hospital because of substernal chest pressure. Her symptoms are getting better with nitroglycerin drip and she would have substernal chest pressure and the nitroglycerin Triptone off. Because of ongoing substernal chest pressure and unstable angina with risk factors of smoking and family Struve premature CAD she was taken to the [facility]. CONSENT: I have explained the procedural steps of above-mentioned procedures in layman's terms to the patient. I discussed the risks (including but not limited to stroke, emergent vascular or cardiac surgery or ), benefits and alternative therapies for the above-mentioned procedure. I discussed the risks of sedation/analgesia and blood product administration (if indicated). The patient has indicated understanding and acceptance of these risks. Conscious Sedation: Patient's ECG, heart rate, blood pressure, pulse oximetry were monitored throughout the duration of procedure under my direct supervision. 1 mg Versed and 50 mcg Fentanyl were used for induction of moderate conscious sedation. Total duration of moderate concious sedation 15 minutes. PROCEDURAL DETAILS: Patient was prepped and draped in sterile fashion. 1% lidocaine was infiltrated over the right radial artery. Right radial access was obtained via modified seldinger technique. [Ultrasound was used for radial access]. Medications: 5mg of verapamil was administed in the radial sheet. 4000 Units of Heparin was administed once the catheter reached the aortic root Wires and Catheter used: J wire was advanced under fluroscopy to get to aortic root. 5 ku[place]i JR 4 diagnostic catheter was utilized obtain left ventricular pressure and pressure gradint across aortic valve. 5 ku[place] JR 4 diagnostic catheter was used to selectively engage the right coronary ostium. 5 [place] JL 3.5 diagnostic catheter was utilized to selectively engage the left coronary ostium. Angiographic images were reviewed in detail. Catheter and wire were removed. Radial sheet was flushed. The right radial sheath was removed and a TR band was placed. Patent hemostasis was achieved. The patient tolerated the procedure well. Patient was transported back to the post catheterization holding area in stable condition. HEMODYNAMICS: LVEDP 15 mmHg. There was no significant gradient across the aortic valve. SELECTIVE CORONARY ARTERIOGRAPHY: LEFT MAIN: The left main is short and large caliber vessel. It bifurcates into the LAD and circumflex. Left main appears angiographically normal. LEFT ANTERIOR DESCENDING CORONARY ARTERY: LAD is a large caliber vessel which wraps around to the apex. LAD appears angiographically patent. It gives rise to small diagonal branch which appears graphically patent. LEFT CIRCUMFLEX CORONARY ARTERY: It is nondominant vessel. Left circumflex is a moderate caliber vessel. It appears angiographically normal. RIGHT CORONARY ARTERY: Dominant vessel. The right coronary artery is a large caliber vessel which gives PDA and PLV branch. It appears angiographically normal. IMPRESSION: Angiographically normal coronary arteries as described above. Normal left sided filling pressures PLAN: Aggressive risk factor modification per most recent ACC/AHA guidelines. 125 cc fluids for 4 hours Discharge home in 4 hours Follow-up in the office in 1-2 weeks. Performing Physician Jesus Maki MD, FACC, RPVI Thank you for allowing [facility] to participate in this patient's care. Feel free to reach out in case of any followup questions. DIAGNOSTIC CORONARY ANGIOGRAPHY and LEFT HEART CATH REPORT PROCEDURES PERFORMED: Left heart catheterization Selective coronary angiography Moderate conscious sedation 15 mins [Ultrasound assisted] Right radial access INDICATION: [Unstable angina] BRIEF HPI: 35-year-old female presented to hospital because of substernal chest pressure. Her symptoms are getting better with nitroglycerin drip and she would have substernal chest pressure and the nitroglycerin Triptone off. Because of ongoing substernal chest pressure and unstable angina with risk factors of smoking and family Struve premature CAD she was taken to the [facility]. CONSENT: I have explained the procedural steps of above-mentioned procedures in layman's terms to the patient. I discussed the risks (including but not limited to stroke, emergent vascular or cardiac surgery or ), benefits and alternat fahad therapies for the above-mentioned procedure. I discussed the risks of sedation/analgesia and blood product administration (if indicated). The patient has indicated understanding and acceptance of these risks. Conscious Sedation: Patient's ECG, heart rate, blood pressure, pulse oximetry were monitored throughout the duration of procedure under my direct supervision. 1 mg Versed and 50 mcg Fentanyl were used for induction of moderate conscious sedation. Total duration of moderate concious sedation 15 minutes. PROCEDURAL DETAILS: Patient was prepped and draped in sterile fashion. 1% lidocaine was infiltrated over the right radial artery. Right radial access was obtained via modified seldinger technique. [Ultrasound was used for radial access]. Medications: 5mg of verapamil was administed in the radial sheet. 4000 Units of Heparin was administed once the catheter reached the aortic root Wires and Catheter used: J wire was advanced under fluroscopy to get to aortic root. 5 [place] JR 4 diagnostic catheter was utilized obtain left ventricular pressure and pressure gradint across aortic valve. 5 [place] JR 4 diagnostic catheter was used to selectively engage the right coronary ostium. 5 [place] JL 3.5 diagnostic catheter was utilized to selectively engage the left coronary ostium. Angiographic images were reviewed in detail. Catheter and wire were removed. Radial sheet was flushed. The right radial sheath was removed and a TR band was placed. Patent hemostasis was achieved. The patient tolerated the procedure well. Patient was transported back to the post catheterization holding area in stable condition. HEMODYNAMICS: LVEDP 15 mmHg. There was no significant gradient across the aortic valve. SELECTIVE CORONARY ARTERIOGRAPHY: LEFT MAIN: The left main is short and large caliber vessel. It bifurcates into the LAD and circumflex. Left main appears angiographically normal. LEFT ANTERIOR DESCENDING CORONARY ARTERY: LAD is a large caliber vessel which wraps around to the apex. LAD appears angiographically patent. It gives rise to small diagonal branch which appears graphically patent. LEFT CIRCUMFLEX CORONARY ARTERY: It is nondominant vessel. Left circumflex is a moderate caliber vessel. It appears angiographically normal. RIGHT CORONARY ARTERY: Dominant vessel. The right coronary artery is a large caliber vessel which gives PDA and PLV branch. It appears angiographically normal.
== END 2025-03-01 15:49 | disposition home or self-care (01) | DRG 191 ==
LOC: EC 09:50 → 6NMEDSUR 13:19 → OBSVTOIN 13:20 → 6NMEDSUR 15:25 → 3SCARD 03-01 05:38
PROVIDERS: ADMIT Hospitalist; ATTEND Hospitalist
PROC: B2111ZZ Fluoroscopy of Multiple Coronary Arteries using Low Osmolar Contrast (ICD-10-PCS; principal; 2025-03-01 11:00)
PROC: 4A023N7 Measurement of Cardiac Sampling and Pressure, Left Heart, Percutaneous Approach (ICD-10-PCS; principal; 2025-03-01 11:00)
DX: I20.0 Unstable angina (principal); F17.200 Nicotine dependence, unspecified, uncomplicated; K76.9 Liver disease, unspecified; R51.9 Headache, unspecified; E83.42 Hypomagnesemia; R74.01 Elevation of levels of liver transaminase levels; F32.A Depression, unspecified; Z82.49 Family history of ischemic heart disease and other diseases of the circulatory system; Z79.82 Long term (current) use of aspirin; Z79.899 Other long term (current) drug therapy; Z88.0 Allergy status to penicillin
CPT/HCPCS: 36415; 71046; 80053; 80061; 81025; 83036; 83735; 83880; 84443; 84484; 85025; 85610; 85652; 85730; 86140; 93005; 93306; 93458; 96361; 96365; 96366; 96368; 96375; 99285